=== PATIENT | female | born 1970 | race Two or more races ===

== ENCOUNTER 2022-06-04 14:49 | Inpatient (IN) | payer OTHER ==
[~2022-06-04] VITALS: Ht 175.3 cm; Wt 81.6 kg
[2022-06-04] MEDS ORDERED: prednisone (14:52)
[2022-06-04] MEDS ORDERED: albuterol (14:52)
[2022-06-04] MEDS ORDERED: ALBUTEROL (0.083%) 2.5MG/3ML NEB HHN STA ×2 (15:46→18:15)
[2022-06-04] MEDS ORDERED: METHYLPREDNISOLONE SOD SUCC 125 MG/2 ML VIAL IV STA (15:46)
[2022-06-04] MEDS ORDERED: IPRATROPIUM BROMIDE (0.02%) 0.5MG/2.5ML NEB HHN STA ×2 (15:46→18:15)
[2022-06-04] MEDS ORDERED: MAGNESIUM 2 G PREMIX 50 ML IV ONE (16:00)
[2022-06-04 19:27] LABS: HEMATOCRIT. 40.7 % (36.0-48.0); HEMOGLOBIN. 13.1 g/dL (12.0-16.0); MEAN CORPUSCULAR HEMOGLOBIN 28.7 pg (28.0-32.0); MEAN CORPUSCULAR VOLUME 88.9 fL (81.0-99.0); MEAN PLATELET VOLUME 10.7 fl (7.4-10.4); PLATELET 208 x1000/uL (130-400); RED BLOOD CELL COUNT 4.58 mill/uL (4.2-5.4)
[2022-06-04 19:33] LABS: CHLORIDE 104 mEq/L (98-107)
[2022-06-04 19:58] LABS: PLATELET ESTIMATE NORMAL
[2022-06-04] MEDS ORDERED: P50 MT (20:58)
[2022-06-04] MEDS ORDERED: IPRATROPIUM/ALBUTEROL 0.5-3(2.5)MG/3ML NEB HHN ONE (23:30)
[2022-06-05 01:14] VITALS: BP 168/110
[2022-06-05] MEDS ORDERED: DOCUSATE SODIUM 100MG CAPSULE PO PRN (01:15)
[2022-06-05] MEDS ORDERED: GUAIFENESIN 200MG/10ML SUGAR FREE UDC PO PRN (01:15)
[2022-06-05] MEDS ORDERED: ACETAMINOPHEN 325MG TABLET PO PRN ×2 (01:15)
[2022-06-05] MEDS: AMLODIPINE 10MG TABLET PO SCH ×2 (01:15→09:00)
[2022-06-05] MEDS ORDERED: KCL 10MEQ/50ML PREMIX 50 ML IV NR (01:15)
[2022-06-05] MEDS ORDERED: MAGNESIUM/ALUMINUM HYDROXIDE/SIMETHICONE 30ML UDC PO PRN (01:15)
[2022-06-05] MEDS ORDERED: ONDANSETRON HCL 4MG/2ML INJ IV PRN (01:15)
[2022-06-05] MEDS: METHYLPREDNISOLONE SOD SUCC 125 MG/2 ML VIAL IV SCH ×4 (02:49→19:10)
[2022-06-05] MEDS: IPRATROPIUM BROMIDE (0.02%) 0.5MG/2.5ML NEB HHN SCH ×5 (03:42→21:50)
[2022-06-05 04:00] VITALS: BP 158/101
[2022-06-05 07:18] LABS: BASOPHILS % 0.1 % (0.0-2.0); HEMATOCRIT. 40.9 % (36.0-48.0); HEMOGLOBIN. 13.5 g/dL (12.0-16.0); LYMPHOCYTES % 8.8 % (20.0-50.0); MEAN CORPUSCULAR HEMOGLOBIN 29.2 pg (28.0-32.0); MEAN CORPUSCULAR VOLUME 88.3 fL (81.0-99.0); MEAN PLATELET VOLUME 11.1 fl (7.4-10.4); NEUTROPHILS % 88.1 % (40.0-76.0); PLATELET 217 x1000/uL (130-400); RED BLOOD CELL COUNT 4.63 mill/uL (4.2-5.4); RED CELL DISTRIBUTION WIDTH 14.1 % (11.6-14.6)
[2022-06-05 07:39] LABS: CHLORIDE 99 mEq/L (98-107)
[2022-06-05 07:55] LABS: HDL CHOLESTEROL 85 mg/dL (40-59); LDL CHOLESTEROL 93 mg/dL (5-100); PHOSPHORUS 3.3 mg/dL (2.5-4.9); T4 FREE 1.13 ng/dL (0.76-1.46)
[2022-06-05 08:00] VITALS: BP 154/91
[2022-06-05 08:33] LABS: BG BASE EXCESS 3.7 mmol/L (-2.0-2.0); BG CARBOXYHEMOGLOBIN 0.8 % (0.5-1.5); BG HCO3 ACT 28.4 mmol/L (22.0-26.0); BG METHEMOGLOBIN 0.2 % (0.0-1.5); BG OXYGEN SATURATION 90.9 % (92.0-98.5); BG PCO2 42.7 mmHg (35.0-45.0); BG PO2 57.3 mmHg (75.0-100.0); BG SAMPLE SITE RIGHT RADIAL; BG TOTAL HEMOGLOBIN 14.9 g/dL (12.0-18.0); BG VENT MODE ROOM AIR
[2022-06-05] MEDS: ENOXAPARIN 40MG/0.4ML SYR SUBCUT SCH (09:00)
[2022-06-05 09:40] LABS: CLARITY URINE CLEAR (CLEAR); COLOR URINE YELLOW (YELLOW); KETONES URINE NEGATIVE (NEGATIVE); LEUKOCYTE ESTERASE URINE 2+ (NEGATIVE); NITRITE URINE NEGATIVE (NEGATIVE); OCCULT BLOOD URINE NEGATIVE (NEGATIVE); PROTEIN URINE 1+ (NEGATIVE); SPECIFIC GRAVITY URINE 1.007 (1.005-1.030); UROBILINOGEN URINE 0.2 E.U./dL (0.2-1.0)
[2022-06-05] MEDS: BUDESONIDE 0.5MG/2ML NEB HHN SCH ×2 (09:43→21:45)
[2022-06-05 09:59] LABS: *AMPHETAMINES SCREEN URINE NEGATIVE (NEGATIVE); *BARBITURATES SCREEN URINE NEGATIVE (NEGATIVE); *BENZODIAZEPINES SCREEN URINE NEGATIVE (NEGATIVE); *COCAINE SCREEN URINE NEGATIVE (NEGATIVE); CANNABINOID URINE SCREEN PRESUMTIVE POSITIVE (NEGATIVE); METHADONE URINE SCREEN NEGATIVE (NEGATIVE); OPIATES URINE SCREEN NEGATIVE (NEGATIVE); PHENCYCLIDINE URINE SCREEN NEGATIVE (NEGATIVE)
[2022-06-05 12:00] VITALS: BP 181/112
[2022-06-05 18:50] VITALS: BP 172/108
[2022-06-05 20:00] VITALS: BP 182/112
[2022-06-05 20:19] LABS: BG BASE EXCESS 2.8 mmol/L (-2.0-2.0); BG CARBOXYHEMOGLOBIN 0.1 % (0.5-1.5); BG DEOXYHEMOGLOBIN 3.1 % (0.0-5.0); BG FRACTION INSPIRED OXYGEN 36; BG HCO3 ACT 28.3 mmol/L (22.0-26.0); BG METHEMOGLOBIN 0.3 % (0.0-1.5); BG OXYGEN SATURATION 96.9 % (92.0-98.5); BG OXYHEMOGLOBIN 96.5 % (94.0-97.0); BG PCO2 46.7 mmHg (35.0-45.0); BG PO2 94.9 mmHg (75.0-100.0); BG SAMPLE SITE RIGHT RADIAL; BG TOTAL HEMOGLOBIN 13.8 g/dL (12.0-18.0); BG VENT MODE NASAL CANNULA
[2022-06-05] MEDS: FAMOTIDINE 20MG TABLET PO SCH (20:33)
[2022-06-05] MEDS ORDERED: GUAIFENESIN 600MG ER TABLET PO PRN (21:15)
[2022-06-05] MEDS ORDERED: AZITHROMYCIN 500 MG in DEXT 5% WATER 250 ML IV SCH (22:00)
[2022-06-05] MEDS: CLONIDINE 0.1MG TABLET PO PRN (22:26)
[2022-06-05] MEDS: CEFTRIAXONE 2 G in DEXTROSE 5% WATER 50 ML IV SCH (22:42)
[2022-06-05] MEDS: IPRATROPIUM/ALBUTEROL 0.5-3(2.5)MG/3ML NEB HHN PRN (23:45)
[2022-06-06] VITALS (7 sets, daily range): BP systolic 120–186; BP diastolic 81–119
[2022-06-06] MEDS: METHYLPREDNISOLONE SOD SUCC 125 MG/2 ML VIAL IV SCH ×5 (01:15→18:14)
[2022-06-06] MEDS: AZITHROMYCIN 500 MG in DEXT 5% WATER 250 ML IV SCH (03:44)
[2022-06-06] MEDS ORDERED: HYDRALAZINE 20MG/ML VIAL IV PRN (05:15)
[2022-06-06] MEDS: IPRATROPIUM/ALBUTEROL 0.5-3(2.5)MG/3ML NEB HHN PRN (05:16)
[2022-06-06] MEDS: CLONIDINE 0.1MG TABLET PO PRN (05:40)
[2022-06-06] MEDS: ENOXAPARIN 40MG/0.4ML SYR SUBCUT SCH (08:32)
[2022-06-06] MEDS: AMLODIPINE 10MG TABLET PO SCH (08:34)
[2022-06-06] MEDS: IPRATROPIUM BROMIDE (0.02%) 0.5MG/2.5ML NEB HHN SCH ×3 (10:00→16:16)
[2022-06-06] MEDS: BUDESONIDE 0.5MG/2ML NEB HHN SCH ×2 (10:00→20:00)
[2022-06-06 10:28] LABS: BG BASE EXCESS 2.7 mmol/L (-2.0-2.0); BG CARBOXYHEMOGLOBIN 0.7 % (0.5-1.5); BG DEOXYHEMOGLOBIN 0.2 % (0.0-5.0); BG FRACTION INSPIRED OXYGEN 100; BG HCO3 ACT 28.6 mmol/L (22.0-26.0); BG METHEMOGLOBIN 0.5 % (0.0-1.5); BG OXYGEN SATURATION 99.8 % (92.0-98.5); BG OXYHEMOGLOBIN 98.6 % (94.0-97.0); BG PCO2 48.9 mmHg (35.0-45.0); BG PH 7.385 (7.350-7.450); BG PO2 458.7 mmHg (75.0-100.0); BG SAMPLE SITE LEFT RADIAL; BG TOTAL HEMOGLOBIN 14.1 g/dL (12.0-18.0); BG VENT MODE MASK - BIPAP
[2022-06-06] MEDS: CHOLECALCIFEROL (VIT D3) 400 UNIT TABLET PO SCH (10:47)
[2022-06-06] MEDS ORDERED: IPRATROPIUM BROMIDE (0.02%) 0.5MG/2.5ML NEB HHN PRN (13:00)
[2022-06-06] MEDS: MONTELUKAST SODIUM 10MG TABLET PO SCH ×2 (17:00→17:49)
[2022-06-06] MEDS: ALBUTEROL (0.083%) 2.5MG/3ML NEB HHN PRN (20:01)
[2022-06-06] MEDS: FAMOTIDINE 20MG TABLET PO SCH ×2 (21:00→21:19)
[2022-06-06] MEDS ORDERED: AZITHROMYCIN 500 MG in DEXT 5% WATER 250 ML IV SCH (21:00)
[2022-06-06] MEDS ORDERED: ALBU6.7H3 INH (21:07)
[2022-06-06] MEDS ORDERED: FLUT1AER5 INH (21:07)
[2022-06-06] MEDS: CEFTRIAXONE 2 G in DEXTROSE 5% WATER 50 ML IV SCH (21:18)
[2022-06-07] MEDS: IPRATROPIUM BROMIDE (0.02%) 0.5MG/2.5ML NEB HHN SCH ×6 (00:20→15:49)
[2022-06-07] MEDS: ALBUTEROL (0.083%) 2.5MG/3ML NEB HHN PRN ×2 (00:21→15:49)
[2022-06-07] MEDS: METHYLPREDNISOLONE SOD SUCC 125 MG/2 ML VIAL IV SCH ×3 (00:49→12:46)
[2022-06-07] MEDS: AZITHROMYCIN 500 MG in DEXT 5% WATER 250 ML IV SCH (02:56)
[2022-06-07 04:00] VITALS: BP 115/69
[2022-06-07] MEDS: BUDESONIDE 0.5MG/2ML NEB HHN SCH (07:51)
[2022-06-07 08:00] VITALS: BP 144/85
[2022-06-07] MEDS: CHOLECALCIFEROL (VIT D3) 400 UNIT TABLET PO SCH (08:14)
[2022-06-07] MEDS: AMLODIPINE 10MG TABLET PO SCH (08:16)
[2022-06-07] MEDS: ENOXAPARIN 40MG/0.4ML SYR SUBCUT SCH (08:16)
[2022-06-07 10:53] VITALS: BP 121/75
[2022-06-07 12:00] VITALS: BP 130/72
[2022-06-07 16:00] VITALS: BP 131/75
[2022-06-07] MEDS: MONTELUKAST SODIUM 10MG TABLET PO SCH (17:00)
== END 2022-06-07 17:10 | disposition home or self-care (01) | DRG 189 ==
LOC: ER 14:49 → MICUSO 21:41 → EDBEDREQ 21:45 → EDBEDREQTM 21:45 → 6EST 06-05 02:32 → 8WST 06-05 18:13
PROVIDERS: ADMIT Hospitalist; ATTEND Hospitalist
PROC: 5A09357 Assistance with Respiratory Ventilation, Less than 24 Consecutive Hours, Continuous Positive Airway Pressure (ICD-10-PCS; principal; 2022-06-06)
DX: J96.01 Acute respiratory failure with hypoxia (principal); J45.901 Unspecified asthma with (acute) exacerbation; T38.0X5A Adverse effect of glucocorticoids and synthetic analogues, initial encounter; D72.829 Elevated white blood cell count, unspecified; Z20.822 Contact with and (suspected) exposure to COVID-19; I10 Essential (primary) hypertension; E87.6 Hypokalemia; Z79.51 Long term (current) use of inhaled steroids; Z79.899 Other long term (current) drug therapy; Y92.89 Other specified places as the place of occurrence of the external cause
CPT/HCPCS: 36415; 36600; 71045; 71250; 80053; 80061; 80305; 81003; 82375; 82805; 83036; 83605; 83735; 83880; 84100; 84145; 84439; 84443; 84481; 84484; 85025; 85379; 87070; 87426; 93005; 93306; 93970; 94640; 97162; 97166; 99285; J0360; J0456; J0696; J1650; J2930; J3475; J3480; J7060; J7626